=== PATIENT | female | born 1970 | race Caucasian/White ===

== ENCOUNTER 2017-08-04 11:31 | Emergency (ER) | payer BC ==
--- NOTE | 2017-08-04 12:31 | UC ---
Eye Complaint HPI - HPI Summary HPI Summary: 47 yo female c/o tick bite to L upper eyelid. Woke up with pain approx 2-3: 00am today. No visual changes. Noticed fb in eyelid upon arousing this am. Hx tick bite last year, unk hx lyme dz. Last evening she was outdoors near a bonfire. - History of Current Complaint Stated Complaint: EYE Time Seen by Provider: 08/04/17 12:30 Hx Obtained From: Patient Hx Last Menstrual Period: years - Allergies/Home Medications Allergies/Adverse Reactions: Allergies Allergy/AdvReac Type Severity Reaction Status Date / Time Sulfa (Sulfonamide Allergy Severe swelling Verified 08/04/17 12:25 Antibiotics) and hives PMH/Surg Hx/FS Hx/Imm Hx Previously Healthy: Yes - Surgical History Surgical History: Yes Surgery Procedure, Year, and Place: hysterectomy. groin hernia repair. breast reduction. exploratory laproscopy in abd - Family History Known Family History: Positive: Unknown - Social History Alcohol Use: Rare Substance Use Type: None Smoking Status (MU): Light Every Day Tobacco Smoker Review of Systems Constitutional: Negative Skin: Other - see hpi Eyes: Other - see hpi ENT: Negative Respiratory: Negative Cardiovascular: Negative Gastrointestinal: Negative Genitourinary: Negative Motor: Negative Neurovascular: Negative Musculoskeletal: Negative Neurological: Negative Psychological: Negative - situational anxious as expected Is Patient Immunocompromised?: No All Other Systems Reviewed And Are Negative: Yes Physical Exam Triage Information Reviewed: Yes Appearance: Well-Nourished Vital Signs Reviewed: Yes Eye Exam: Other ENT Exam: Normal - grossly normal except eye exam as above Respiratory Exam: Normal - no tachypnea, no dyspnea Cardiovascular Exam: Normal - hr regular, non-diaphoretic Abdominal Exam: Normal - no c/o's pain Musculoskeletal Exam: Normal - moves x 4 ext's. gait steady Neurological Exam: Normal - grossly nonfocal facial expressions symmetric Psychological Exam: Normal - conversing easily and appropriately understandably anxious Skin Exam: Normal - see eye exam Eye Complaint Course/Dx - Course Course Of Treatment: 143/91 bp, will f/u pcp. Splinter forceps - tick removed, still moving. However, mandibular portion remained x 2, 1st part removed via splinters, 2nd part removed via splinter and 18g bevel. Reviewed wound care and need for f/u pcp. Questions as posed answered to the best of my ability. - Differential Dx/Diagnosis Provider Diagnoses: Tick bite L upper eyelid Discharge - Discharge Plan Referrals: Kaelyn Braxton MD [Primary Care Provider] -
[2017-08-04 12:33] VITALS: BP 143/91
[2017-08-04] MEDS ORDERED: HYDROcodone/ACETAMIN 5-325 MG* 1 TAB PO ONE (13:01)
[2017-08-04] MEDS ORDERED: Erythromycin OPTH OINT* APPLIC OINT RIGHT EYE ONE (13:01)
== END 2017-08-04 13:57 | disposition home or self-care (01) ==
LOC: UCCORT 11:31
DX: S00.262A Insect bite (nonvenomous) of left eyelid and periocular area, initial encounter (principal); W57.XXXA Bitten or stung by nonvenomous insect and other nonvenomous arthropods, initial encounter; Y93.9 Activity, unspecified; Y92.9 Unspecified place or not applicable; Z88.2 Allergy status to sulfonamides; F17.210 Nicotine dependence, cigarettes, uncomplicated
CPT/HCPCS: 99202; A9270-GY; G0463

== ENCOUNTER 2018-09-03 09:20 | Emergency (ER) | payer BC ==
[2018-09-03 09:33] VITALS: BP 139/84
--- NOTE | 2018-09-03 09:47 | UC ---
Throat Pain/Nasal Lex HPI - HPI Summary HPI Summary: sore throat x 2 days nasal congestion , cough , bilateral ear pain no fever, + chills, body aches been taking otc cold meds with no improvements - History of Current Complaint Chief Complaint: UCGeneralIllness Stated Complaint: BI LAT EAR PAIN,COUGH Time Seen by Provider: 09/03/18 09:37 Hx Obtained From: Patient Hx Last Menstrual Period: years ?: No Onset/Duration: Gradual Onset, Lasting Days - 2, Still Present Severity: Moderate Pain Intensity: 8 Cough: Nonproductive Associated Signs & Symptoms: Positive: Sinus Discomfort, Nasal Discharge. Negative: Dysphagia, FB Sensation, Drooling, Wheezing, Hoarseness, Fever, Vomiting, Rash - Allergies/Home Medications Allergies/Adverse Reactions: Allergies Allergy/AdvReac Type Severity Reaction Status Date / Time Sulfa (Sulfonamide Allergy Severe swelling Verified 09/03/18 09:29 Antibiotics) and hives Home Medications: Home Medications Acetaminophen [Tylenol Extra Strength] 1,000 mg PO ONCE PRN 09/03/18 [History Confirmed 09/03/18] Bupropion XL* [Wellbutrin XL *] 450 mg PO DAILY 09/03/18 [History Confirmed ] Dm/Acetaminophen/Doxylamine [Nighttime Cold and Flu Liquid] 1 dose PO ONCE PRN 09/03/18 [History Confirmed 09/03/18] Escitalopram * [Lexapro *] 20 mg PO DAILY 09/03/18 [History Confirmed 09/03/18] PMH/Surg Hx/FS Hx/Imm Hx Cardiovascular History: Hypertension Neurological History: Seizures Psychological History: Depression - Surgical History Surgical History: Yes Surgery Procedure, Year, and Place: hysterectomy. groin hernia repair. breast reduction. exploratory laproscopy in abd - Family History Known Family History: Positive: Unknown Negative: Diabetes - Social History Alcohol Use: Occasionally Substance Use Type: None Smoking Status (MU): Light Every Day Tobacco Smoker Type: Cigarettes Amount Used/How Often: 1/2 PPD Household Exposure Type: Cigarettes Review of Systems All Other Systems Reviewed And Are Negative: Yes Constitutional: Positive: Chills, Fatigue Skin: Positive: Negative Eyes: Positive: Negative ENT: Positive: Sore Throat, Ear Ache, Nasal Discharge Respiratory: Positive: Cough Is Patient Immunocompromised?: No Physical Exam Triage Information Reviewed: Yes Appearance: Well-Appearing, No Pain Distress, Well-Nourished Vital Signs: Initial Vital Signs Temp 97.9 F 09/03/18 09:30 Pulse 80 09/03/18 09:30 Resp 20 09/03/18 09:30 BP 139/84 09/03/18 09:30 Pulse Ox 100 09/03/18 09:30 Vital Signs Reviewed: Yes Eye Exam: Normal Eyes: Positive: Conjunctiva Clear ENT: Positive: Normal ENT inspection, Hearing grossly normal, Pharynx normal, Nasal congestion, TMs normal. Negative: TM bulging, TM dull, TM red, Tonsillar swelling, Tonsillar exudate Neck: Positive: Supple, Nontender, No Lymphadenopathy Respiratory: Positive: Chest non-tender, Lungs clear, Normal breath sounds Cardiovascular: Positive: RRR, No Murmur, Pulses Normal Throat Pain/Nasal Course/Dx - Differential Dx/Diagnosis Provider Diagnosis: URI (upper respiratory infection) Discharge - Sign-Out/Discharge Documenting (check all that apply): Patient Departure All imaging exams completed and their final reports reviewed: No Studies - Discharge Plan Condition: Stable Disposition: HOME Prescriptions: Fluticasone NASAL SPRAY 50MCG* [Flonase NASAL SPRAY 50MCG*] 2 spray BOTH NARES DAILY #1 btl Patient Education Materials: Upper Respiratory Infection (ED) Referrals: Carlton Pastor MD [Primary Care Provider] - If Needed - Billing Disposition and Condition Condition: STABLE Disposition: Home
== END 2018-09-03 09:48 | disposition home or self-care (01) ==
LOC: UCCORT 09:20
DX: J06.9 Acute upper respiratory infection, unspecified (principal); Z88.2 Allergy status to sulfonamides; I10 Essential (primary) hypertension; F32.9 Major depressive disorder, single episode, unspecified; F17.210 Nicotine dependence, cigarettes, uncomplicated
CPT/HCPCS: 99212; G0463